=== PATIENT | male | born 1990 | race Caucasian/White ===

== ENCOUNTER 2021-04-04 19:49 | Emergency (ER) | payer OTHER ==
[2021-04-04 20:25] LABS: HEMOGLOBIN 14.4 gm/dl (14.0-17.5); RED BLOOD COUNT 4.52 M/UL (4.20-5.50)
[2021-04-04 20:45] LABS: BUN/CREATININE RATIO 26 (0-10)
[2021-04-04] MEDS ORDERED: FLORASTOR250 MG PO (22:51)
[2021-04-04] MEDS ORDERED: BENTYL 20MG TAB20 MG PO (22:51)
== END 2021-04-04 23:00 | disposition home or self-care (01) ==
LOC: ER1 19:49
PROVIDERS: Emergency Medicine
DX: R10.31 Right lower quadrant pain (principal); R10.32 Left lower quadrant pain; R11.0 Nausea; R19.7 Diarrhea, unspecified; Z20.822 Contact with and (suspected) exposure to COVID-19; F17.200 Nicotine dependence, unspecified, uncomplicated; Z88.0 Allergy status to penicillin
CPT/HCPCS: 80053; 80307; 81001; 85025; 96374; 96375; 99284; J2270; J2405; Q9967; U0002